=== PATIENT | male | born 2000 | race Caucasian/White ===

== ENCOUNTER 2023-04-25 11:35 | Emergency (ER) | payer OTHER ==
[2023-04-25 11:46] VITALS: BP 127/81; PULSE 65; RESP 18; TEMP 97.5; BMI 25.1
== END 2023-04-25 12:36 | disposition home or self-care (01) ==
LOC: FER 11:35
DX: S89.91XA Unspecified injury of right lower leg, initial encounter (principal); X50.1XXA Overexertion from prolonged static or awkward postures, initial encounter; Y93.66 Activity, soccer
CPT/HCPCS: 73562-TC-RT-FY; 99283-25